=== PATIENT | male | born 1960 | race Caucasian/White ===

== ENCOUNTER 2017-04-23 17:24 | Emergency (ER) | payer MEDICAID ==
[~2017-04-23] VITALS: Ht 160 cm; Wt 95.0 kg
[~2017-04-23 17:24] MED LIST: ATEN25TA PO; LISI10TA7 PO; OLAN20TA2 PO; SIMV-260 PO
[2017-04-23 17:38] LABS: GLUCOSE,POINT OF CARE 123 MG/DL (70-110)
[2017-04-23] MEDS ORDERED: POVIDONE-IODINE 10% 15 ML SOLUTION UD TP ONE (18:45)
[2017-04-23] MEDS ORDERED: IBUPROFEN 800 MG TABLET PO ONE (18:45)
[2017-04-23] MEDS ORDERED: PERTUSS(ACELL),DIPH,TET VAC/PF 0.5 ML VIAL IM ONE (18:45)
[2017-04-23] MEDS ORDERED: LIDOCAINE HCL 1% 10 ML VIAL INJ ONE (18:45)
[2017-04-23] MEDS ORDERED: BACITRACIN 0.9 GM PACKET OINTMENT TP ONE (19:45)
[2017-04-23 19:57] VITALS: BP 121/72
== END 2017-04-23 19:58 | disposition home or self-care (01) ==
LOC: EMS 17:26
DX: S61.411A Laceration without foreign body of right hand, initial encounter (principal); E11.9 Type 2 diabetes mellitus without complications; E78.00 Pure hypercholesterolemia, unspecified; I10 Essential (primary) hypertension; F17.210 Nicotine dependence, cigarettes, uncomplicated; W45.8XXA Other foreign body or object entering through skin, initial encounter; Y93.89 Activity, other specified; Y92.810 Car as the place of occurrence of the external cause; Y99.8 Other external cause status
CPT/HCPCS: 12002; 82962; 90471; 90715; 99284; J3490

== ENCOUNTER 2017-07-24 15:03 | Emergency (ER) | payer MEDICAID ==
[~2017-07-24] VITALS: Ht 170.2 cm; Wt 131.8 kg
[2017-07-24] MEDS ORDERED: HYDR25TA PO (16:18)
[2017-07-24] MEDS ORDERED: GLIP10 PO (16:21)
[2017-07-24] MEDS ORDERED: ACETAMINOPHEN 325 MG TABLET PO ONE (16:30)
[2017-07-24 16:33] LABS: GLUCOSE,POINT OF CARE 211 MG/DL (70-110)
[2017-07-24 16:57] LABS: INFLUENZA TYPE A NEGATIVE FOR TYPE A (NEGATIVE); INFLUENZA TYPE B NEGATIVE FOR TYPE B (NEGATIVE)
[2017-07-24 17:33] VITALS: BP 122/68
[2017-07-24 17:33] LABS: GLUCOSE,POINT OF CARE 136 MG/DL (70-110)
== END 2017-07-24 17:44 | disposition home or self-care (01) ==
LOC: EMS 15:07
DX: J40 Bronchitis, not specified as acute or chronic (principal); F17.210 Nicotine dependence, cigarettes, uncomplicated; I10 Essential (primary) hypertension; E78.00 Pure hypercholesterolemia, unspecified; E11.9 Type 2 diabetes mellitus without complications
CPT/HCPCS: 71046; 82962; 87804; 99285

== ENCOUNTER 2019-07-26 19:51 | Emergency (ER) | payer MEDICAID ==
[~2019-07-26] VITALS: Ht 160 cm; Wt 94.5 kg
[~2019-07-26 19:51] MED LIST changes: +GLIP10 PO; +HYDR-1475 PO
[2019-07-26 19:56] VITALS: BP 144/92
[2019-07-26 20:11] LABS: GLUCOSE,POINT OF CARE 123 MG/DL (70-110)
== END 2019-07-26 20:43 | disposition home or self-care (01) ==
LOC: EMS 19:51
DX: R20.2 Paresthesia of skin (principal); L84 Corns and callosities; D17.9 Benign lipomatous neoplasm, unspecified; I10 Essential (primary) hypertension; F32.9 Major depressive disorder, single episode, unspecified; E11.9 Type 2 diabetes mellitus without complications; F20.9 Schizophrenia, unspecified; E78.00 Pure hypercholesterolemia, unspecified; F17.210 Nicotine dependence, cigarettes, uncomplicated; Z79.899 Other long term (current) drug therapy

== ENCOUNTER 2020-09-02 07:28 | Emergency (ER) | payer MEDICAID ==
[~2020-09-02] VITALS: Ht 160 cm; Wt 95.5 kg
[~2020-09-02 07:28] MED LIST changes: +ATEN-73 PO; -ATEN25TA PO; -HYDR-1475 PO; +HYDR25TA2 PO; +LISI10TA24 PO; -LISI10TA7 PO
[2020-09-02] MEDS ORDERED: ASPI-1450 PO (07:34)
[2020-09-02] MEDS ORDERED: METF-960 PO (07:34)
[2020-09-02] MEDS ORDERED: GLIP5 PO (07:34)
[2020-09-02] MEDS ORDERED: ACETAMINOPHEN 500 MG TABLET PO ONE (08:30)
[2020-09-02 09:08] LABS: BASOPHILS % (AUTO) 0.3 % (0.0-2.0); EOSINOPHILS % (AUTO) 2.1 % (1.0-6.0); HEMATOCRIT 45.3 % (41-53); LYMPHOCYTES # (AUTO) 2.7 K/uL (1.0-4.8); LYMPHOCYTES % (AUTO) 31.8 % (22.0-44.0); MEAN CORPUSCULAR HEMOGLOBIN 30.2 pg (26.0-34.0); MEAN CORPUSCULAR HGB CONC 33.1 G/dL (31.0-37.0); MEAN CORPUSCULAR VOLUME 91 fL (80-100); MONOCYTES # (AUTO) 0.8 K/uL (0.1-1.0); MONOCYTES % (AUTO) 9.7 % (2.0-9.0); NEUTROPHILS # (AUTO) 4.8 K/uL (1.8-7.7); NEUTROPHILS % (AUTO) 56.1 % (40.0-70.0); PLATELET COUNT (AUTO) 162 K/uL (150-450); RED BLOOD CELL COUNT(AUTO) 4.96 MIL/uL (4.50-5.90); RED CELL DISTRIBUTION WIDTH 13.4 % (11.5-14.5)
[2020-09-02 09:22] LABS: ANION GAP 4 mmol/L (8-16); CALCIUM, TOTAL 8.7 mg/dL (8.8-10.5); CARBON DIOXIDE 32 mmol/L (22-29); CHLORIDE 105 mmol/L (98-107); CREATININE 0.72 mg/dL (0.60-1.30); GLOMERULAR FILTR. RATE CALC > 60 mL/min (>60); GLUCOSE,RANDOM 128 mg/dL (70-110); POTASSIUM 4.5 mmol/L (3.5-5.1); SODIUM SERUM 141 mmol/L (136-145); UREA NITROGEN, BLOOD 8 mg/dL (7-18)
[2020-09-02] MEDS ORDERED: IBUPROFEN 600 MG TABLET PO ONE (09:45)
[2020-09-02 10:28] VITALS: BP 148/94
== END 2020-09-02 10:32 | disposition home or self-care (01) ==
LOC: EMS 07:36
DX: R07.2 Precordial pain (principal); R51.9 Headache, unspecified
CPT/HCPCS: 93005; 99285; 36415-L1; 36415-TC; 71045-TC